=== PATIENT | male | born 1950 | race Caucasian/White ===

== ENCOUNTER → 2018-12-17 | Day surgery (SDC) | payer MEDICARE ==
[~2018-12-17] MED LIST: CARV12.5 PO; CARV6.25 PO; EZET10TA18 PO; IV RINGERS,LACTATED 1000ML 1,000 ML IV SCH; LIDOCAINE 2% PF 5 ML VIAL. ONE; OMEG300C PO; PRIM250T28 PO; PROP80CA3 PO; PROPOFOL 40 ML IV ONE
[2018-12-17 15:07] VITALS: BP 120/66
--- NOTE | 2018-12-18 05:06 | CONS ---
DATE OF CONSULTATION: 12/17/2018 REASON FOR CONSULTATION: Colorectal screening. HISTORY OF PRESENT ILLNESS: This is a 68-year-old male whose past medical history is significant for appendectomy, carpal tunnel release as well as hyperlipidemia and hypertension, seen for interval colonoscopy. Last exam done 10 years ago was unrevealing for pathology. Bowel habits have been regular without diarrhea or constipation. There has been no melena and/or hematochezia. Family history likewise is unrevealing for colon polyps or colon cancers. He is otherwise without additional complaints. PAST MEDICAL HISTORY: Hyperlipidemia, hypertension. ALLERGIES: DOXYCYCLINE. MEDICATIONS: Include Zetia, Mysoline and propranolol. FAMILY AND SOCIAL HISTORY: Nonsmoker, nondrinker. He is retired. FAMILY HISTORY: Noncontributory. REVIEW OF SYSTEMS: As per records. PHYSICAL EXAMINATION: GENERAL: A well-nourished, well-developed male, who is alert, cooperative, in no acute distress. VITAL SIGNS: Temperature is 98.1, pulse 56, respiratory rate 16. HEENT: Normocephalic, atraumatic head. Pupils and extraocular muscles are not tested. Sclerae anicteric. NECK: Supple. LUNGS: Clear. CARDIOVASCULAR: Reveals S1, S2 without S3, S4 or appreciable murmur. ABDOMEN: Soft abdomen, normal bowel sounds, without appreciable hepatosplenomegaly. Right lower quadrant appendectomy incision. EXTREMITIES: Reveals no cyanosis, clubbing, edema. IMPRESSION: Colorectal screening is warranted at this time. Risks and benefits of procedure including risk of hemorrhage and perforation during the operation have been discussed. The patient is willing to proceed. FRIDA PRAKASH MD DR: PAULA/flaca JOB#: [id number] / [id number] ecc ,
== END | disposition home or self-care (01) ==
LOC: ENDOS 13:16
PROVIDERS: ATTEND Internal Medicine Gastroenterology
DX: Z12.11 Encounter for screening for malignant neoplasm of colon (principal); K64.0 First degree hemorrhoids; I10 Essential (primary) hypertension; E78.5 Hyperlipidemia, unspecified; Z90.49 Acquired absence of other specified parts of digestive tract; Z88.5 Allergy status to narcotic agent; Z98.890 Other specified postprocedural states; Z79.899 Other long term (current) drug therapy
CPT/HCPCS: G0121; J2001; J2704; 45378